=== PATIENT | female | born 1930 | race Caucasian/White ===

== ENCOUNTER → 2017-07-16 | Outpatient (CLI) | payer MEDICARE ==
[~2017-07-16] MED LIST: ASPIRIN81 M2 PO; HUMULIN N100 UNITS/ SC; NOVOLIN N100 UNITS/ SC; NOVOLIN,HU100 UNITS/ SC; NOVOLIN,HU100 UNITS1 SC; PRAVACHOL40 MG PO; PRINZIDE 10-121 EACH PO; PROTONIX40 MG PO; TYLENOL WITH C1 EACH PO; ZOFRAN4 MG PO
== END | disposition home or self-care (01) ==
LOC: CDC 08:56
DX: R94.31 Abnormal electrocardiogram [ECG] [EKG] (principal)
CPT/HCPCS: 93000